=== PATIENT | female | born 1945 | race Caucasian/White ===

== ENCOUNTER 2016-05-11 10:30 | Outpatient (RCR) | payer BC ==
[~2016-05-11 10:30] MED LIST: ASPIRIN E.C. 8181 MG PO; ATROVENT NASAL15 ML NS; CARDIO TEA PO; CARDIOTABS PO; COENZYME Q-10100 M1 PO; CRANBERRY FRUI425 MG PO; LIPITOR 40MG TA40 MG PO; LOPRESSOR 550 MG/TAB PO; MINOCIN 50M50 MG/CAP PO; MUCINEX 60600 MG/TA1 PO; MULTI VITAMINS1 TAB PO; NEURONTIN100 MG/CAP PO; OMEGA-3 1000 MG1 CAP PO; PREMARIN .3MG0.3 MG PO; PRILOSEC 20MG20 MG PO; PROBIOTIC-MAJOR PO; SINGULAIR 110 MG/TAB PO; VITAMIN C500 MG PO; VITAMIN D 1001000 IU PO; VITAMIN K0.1 MG PO; [UNRECOGNIZED DRUG - OTHER] PO
== END 2016-06-19 09:09 | disposition still patient (30) ==
LOC: MKS.ESL.PT 10:30
DX: M77.8 Other enthesopathies, not elsewhere classified (principal)

== ENCOUNTER → 2016-11-14 | Outpatient (CLI) | payer BC | LOC: MC.RAD 14:16 | DX: Z12.31 Encounter for screening mammogram for malignant neoplasm of breast (principal) ==

== ENCOUNTER → 2017-12-12 | Outpatient (CLI) | payer MEDICARE, BC | LOC: MC.RAD 10:20 | DX: Z12.31 Encounter for screening mammogram for malignant neoplasm of breast (principal) ==

== ENCOUNTER → 2018-12-30 | Outpatient (CLI) | payer MEDICARE, BC | LOC: MC.RAD 10:00 | DX: Z12.31 Encounter for screening mammogram for malignant neoplasm of breast (principal) ==

== ENCOUNTER 2019-12-18 10:58 | Emergency (ER) | payer MEDICARE, BC ==
[~2019-12-18] VITALS: Ht 167.6 cm; Wt 61.4 kg
[2019-12-18 11:03] VITALS: TEMP 98
[2019-12-18 11:24] LABS: BASO % 0.9 % (0.0-2.0); EOS # 0.1 (0.0-0.7); EOS % 1.9 % (0-4.0); GRAN # 2.8 (1.4-6.5); GRAN % 58.8 % (42.2-75.2); HEMATOCRIT 41.5 % (37.0-47.0); LYMPH # 1.4 (1.2-3.4); LYMPH % 30.1 % (20.0-51.0); MEAN CELL VOLUME 94 fl (80.0-100.0); MEAN CORPUSCULAR HEMOGLOBIN 32 pg (27.0-31.0); MEAN CORPUSCULAR HGB CONC 34 g/dl (33.0-37.0); MEAN PLATELET VOLUME 10.1 fl (7.4-10.4); MONO # 0.4 (0.1-0.6); MONO % 8.1 % (1.7-9.3); PLATELET COUNT 198 K/mm3 (130-400); RED BLOOD COUNT 4.42 M/mm3 (4.10-5.30); REDCELL DISTRIBUTION WIDTH-CV 12.2 % (11.5-14.5)
[2019-12-18 11:29] LABS: PROTHROMBIN TIME 11.4 SECONDS (9.7-12.8)
[2019-12-18 11:32] LABS: PARTIAL THROMBOPLASTIN TIME 28.5 SECONDS (26.0-37.0)
[2019-12-18 11:35] LABS: ALANINE AMINOTRANSFERASE 14 U/L (4-34); ALBUMIN 3.9 gm/dL (3.5-5.0); ALKALINE PHOSPHATASE 52 U/L (50-136); ANION GAP 4 mmol/L (7-16); AST,SGOT 22 U/L (15-37); BILIRUBIN,TOTAL 0.8 mg/dL (0.0-1.0); BLOOD UREA NITROGEN 16 mg/dL (7-17); CALCIUM 9.8 mg/dL (8.4-10.2); CARBON DIOXIDE 28 mmol/L (22-30); CHLORIDE 104 mmol/L (98-107); CREATININE, serum 0.75 (0.52-1.25); GLUCOSE 103 mg/dL (74-106); POTASSIUM 3.9 mmol/L (3.4-5.0); SODIUM 136 mmol/L (137-145); TOTAL PROTEIN 6.5 gm/dL (6.4-8.2)
[2019-12-18 11:36] LABS: C-REACTIVE PROTEIN < 0.5 mg/dL (0.0-0.9)
[2019-12-18 11:44] LABS: TROPONIN-I 0.019 ng/mL (0.000-0.035)
[2019-12-18 12:21] VITALS: BP 128/81; PULSE 57
== END 2019-12-18 12:25 | disposition home or self-care (01) ==
LOC: COL.ER 10:58
PROVIDERS: Family Medicine
DX: R07.89 Other chest pain (principal); Z90.710 Acquired absence of both cervix and uterus; Z79.82 Long term (current) use of aspirin
CPT/HCPCS: J2405; J7030

== ENCOUNTER 2020-06-21 11:48 | Emergency (ER) | payer MEDICARE, BC ==
[~2020-06-21] VITALS: Ht 167.6 cm; Wt 65.0 kg
[2020-06-21 23:47] VITALS: TEMP 98.3
[2020-06-22 04:00] VITALS: BP 128/91; PULSE 72
[2020-06-22 14:21] LABS: ALANINE AMINOTRANSFERASE 23 U/L (4-34); ALBUMIN 3.9 gm/dL (3.5-5.0); ALKALINE PHOSPHATASE 60 U/L (50-136); ANION GAP 8 mmol/L (7-16); AST,SGOT 33 U/L (15-37); BILIRUBIN,TOTAL 0.4 mg/dL (0.0-1.0); BLOOD UREA NITROGEN 17 mg/dL (7-17); CALCIUM 9.1 mg/dL (8.4-10.2); CARBON DIOXIDE 24 mmol/L (22-30); CHLORIDE 107 mmol/L (98-107); CREATININE, serum 0.74 (0.52-1.25); GLUCOSE 130 mg/dL (74-106); POTASSIUM 4.2 mmol/L (3.4-5.0); SODIUM 139 mmol/L (137-145); TOTAL PROTEIN 6.4 gm/dL (6.4-8.2); TROPONIN-I < 0.012 ng/mL (0.000-0.035)
[2020-06-22 14:33] LABS: BASO % 0.8 % (0.0-2.0); EOS # 0.2 (0.0-0.7); GRAN # 2.7 (1.4-6.5); GRAN % 51.5 % (42.2-75.2); HEMATOCRIT 42.1 % (37.0-47.0); HEMOGLOBIN 14.4 g/dl (12.5-16.0); LYMPH # 1.8 (1.2-3.4); LYMPH % 34.5 % (20.0-51.0); MEAN CELL VOLUME 94 fl (80.0-100.0); MEAN CORPUSCULAR HEMOGLOBIN 32 pg (27.0-31.0); MEAN CORPUSCULAR HGB CONC 34 g/dl (33.0-37.0); MEAN PLATELET VOLUME 9.7 fl (7.4-10.4); MONO # 0.5 (0.1-0.6); MONO % 8.8 % (1.7-9.3); PLATELET COUNT 224 K/mm3 (130-400); RED BLOOD COUNT 4.46 M/mm3 (4.10-5.30)
[2020-06-22 14:48] LABS: INR 1.3 (0.8-3.0); PARTIAL THROMBOPLASTIN TIME 33.3 SECONDS (26.0-37.0); PROTHROMBIN TIME 14.1 SECONDS (9.7-12.8)
== END 2020-06-22 04:00 | disposition home or self-care (01) ==
LOC: COL.ER 11:48
PROVIDERS: Emergency Medicine
DX: R00.2 Palpitations (principal); R42 Dizziness and giddiness; R00.0 Tachycardia, unspecified; I10 Essential (primary) hypertension; I48.91 Unspecified atrial fibrillation; Z87.891 Personal history of nicotine dependence; Z90.710 Acquired absence of both cervix and uterus; Z79.82 Long term (current) use of aspirin
CPT/HCPCS: J7030

== ENCOUNTER 2020-12-08 15:00 | Outpatient (RCR) | payer MEDICARE, BC | END 2021-01-18 11:01 | disposition home or self-care (01) | LOC: WSPT 15:00 | DX: M51.36 Other intervertebral disc degeneration, lumbar region (principal); M50.30 Other cervical disc degeneration, unspecified cervical region | CPT/HCPCS: G0283-GP ==

== ENCOUNTER 2021-07-27 09:45 | Outpatient (RCR) | payer MEDICARE, BC | END 2021-08-07 | disposition home or self-care (01) | LOC: WSPT | DX: M25.561 Pain in right knee (principal); M25.562 Pain in left knee; G89.29 Other chronic pain ==

== ENCOUNTER 2021-08-30 10:44 | Outpatient (RCR) | payer MEDICARE, BC | END 2021-09-07 | disposition still patient (30) | LOC: WSPT | DX: M25.561 Pain in right knee (principal); M25.562 Pain in left knee ==

== ENCOUNTER 2021-11-03 15:45 | Outpatient (RCR) | payer MEDICARE, BC | END 2021-11-07 | disposition home or self-care (01) | LOC: WSPT | DX: M25.561 Pain in right knee (principal); M25.562 Pain in left knee; G89.29 Other chronic pain ==

== ENCOUNTER → 2022-07-10 | Outpatient (RCR) | payer MEDICARE, BC | END | disposition home or self-care (01) | LOC: WSPT | DX: R26.89 Other abnormalities of gait and mobility (principal) ==

== ENCOUNTER → 2023-02-20 | Outpatient (CLI) | payer MEDICARE, BC | LOC: MC.RAD 07:00 | DX: Z12.31 Encounter for screening mammogram for malignant neoplasm of breast (principal) ==

== ENCOUNTER 2023-03-06 09:00 | Outpatient (RCR) | payer MEDICARE, BC | END 2023-03-09 | disposition home or self-care (01) | LOC: WSPT | DX: M54.16 Radiculopathy, lumbar region (principal) ==

== ENCOUNTER → 2023-06-11 | Outpatient (CLI) | payer MEDICARE, BC ==
[2023-06-11 15:35] LABS: BASO % 0.9 % (0.0-2.0); EOS # 0.1 K/mm3 (0.0-0.7); EOS % 2.7 % (0.0-4.0); GRAN # 2.2 K/mm3 (1.4-6.5); HEMATOCRIT 42.8 % (37.0-47.0); HEMOGLOBIN 14.4 g/dl (12.5-16.0); LYMPH # 1.6 K/mm3 (1.2-3.4); LYMPH % 36.9 % (20.0-51.0); MEAN CELL VOLUME 94 fl (80.0-100.0); MEAN CORPUSCULAR HEMOGLOBIN 32 pg (27-31); MEAN CORPUSCULAR HGB CONC 34 g/dl (33.0-37.0); MEAN PLATELET VOLUME 10.3 fl (7.4-10.4); MONO # 0.4 K/mm3 (0.1-0.6); PLATELET COUNT 202 K/mm3 (130-400); RED BLOOD COUNT 4.54 M/mm3 (4.10-5.30); REDCELL DISTRIBUTION WIDTH-CV 12.9 % (11.5-14.5)
[2023-06-11 16:07] LABS: ALANINE AMINOTRANSFERASE 16 U/L (0-55); ALBUMIN 3.5 gm/dL (3.4-4.8); ALKALINE PHOSPHATASE 85 U/L (40-150); ANION GAP 11 mmol/L (7-16); AST,SGOT 20 U/L (5-34); BILIRUBIN,TOTAL 0.9 mg/dL (0.2-1.2); BLOOD UREA NITROGEN 19 mg/dL (10-20); CALCIUM 9.9 mg/dL (8.4-10.2); CARBON DIOXIDE 24 mmol/L (23-31); CHLORIDE 109 mmol/L (98-107); CREATININE, serum 0.82 mg/dL (0.57-1.11); GLUCOSE 102 mg/dL (70-99); MAGNESIUM 1.9 mg/dL (1.6-2.6); POTASSIUM 4.6 mmol/L (3.5-4.5); SODIUM 144 mmol/L (136-145); TOTAL PROTEIN 6.3 gm/dL (6.2-8.1)
[2023-06-11 16:20] LABS: TROPONIN-I < 0.010 ng/mL (0.00-0.033)
== END ==
LOC: COL.LAB 14:51
PROVIDERS: Nurse Practitioner Family
DX: R00.2 Palpitations (principal)

== ENCOUNTER 2024-02-18 23:44 | Emergency (ER) | payer MEDICARE, BC ==
[~2024-02-18] VITALS: Ht 167.6 cm; Wt 66.8 kg
[2024-02-18 23:51] VITALS: TEMP 98
[2024-02-19] MEDS ORDERED: Etomidate 20 MG/10 ML VIAL IV ONE (00:30)
[2024-02-19] MEDS ORDERED: fentaNYL 50 MCG/ML 2 ML VIAL IV ONE (00:30)
[2024-02-19 02:15] VITALS: BP 158/90; PULSE 88
[2024-02-19] MEDS ORDERED: Acetaminophen 500 MG TAB PO ONE (02:15)
== END 2024-02-19 02:16 | disposition home or self-care (01) ==
LOC: COL.ER 23:44
DX: S52.502A Unspecified fracture of the lower end of left radius, initial encounter for closed fracture (principal); W01.0XXA Fall on same level from slipping, tripping and stumbling without subsequent striking against object, initial encounter; Y92.000 Kitchen of unspecified non-institutional (private) residence as the place of occurrence of the external cause
CPT/HCPCS: J3010

== ENCOUNTER → 2024-03-05 | Outpatient (CLI) | payer MEDICARE, BC | LOC: MC.RAD 11:15 | DX: Z12.31 Encounter for screening mammogram for malignant neoplasm of breast (principal) ==

== ENCOUNTER → 2024-04-08 | Outpatient (CLI) | payer MEDICARE, BC | LOC: COL.RAD 10:15 | DX: I51.7 Cardiomegaly (principal); M51.369 Other intervertebral disc degeneration, lumbar region without mention of lumbar back pain or lower extremity pain; E87.70 Fluid overload, unspecified; I25.10 Atherosclerotic heart disease of native coronary artery without angina pectoris ==